=== PATIENT | female | born 1965 | race Caucasian/White ===

== ENCOUNTER → 2024-02-10 11:35 | Outpatient (CLI) | payer OTHER, MEDICAID, SELFPAY ==
--- NOTE | 2024-02-10 11:38 | DI.RAD.S_ITS ---
PROCEDURE: XR CHEST 2V INDICATIONS: unexpected weight loss TECHNIQUE: 2 views of the chest were acquired. COMPARISON: None. FINDINGS: Surgical changes and devices: Right upper quadrant clips consistent with cholecystectomy. Lungs and pleura: Lungs are clear. No pleural effusions or pneumothorax. Mediastinum: Mediastinal contours are normal. Heart size is normal. Bones and chest wall: No suspicious bony abnormalities. Soft tissues appear unremarkable. IMPRESSION: No acute cardiopulmonary disease is seen. Dictated by: Bob Singleton M.D. on 02/10/2024 at 16:27 Approved by: Bob Singleton M.D. on 02/10/2024 at 16:28
[2024-02-13 11:36] LABS: Fecal Immunochemical Test Negative (Negative)
== END ==
PROVIDERS: PCP Family Medicine; Referring Provider Family Medicine; Visit Provider Family Medicine
DX: R63.4 Abnormal weight loss (principal); Z12.11 Encounter for screening for malignant neoplasm of colon; Z83.49 Family history of other endocrine, nutritional and metabolic diseases; R53.83 Other fatigue; G47.00 Insomnia, unspecified; R73.09 Other abnormal glucose
CPT/HCPCS: 71046; 82274

== ENCOUNTER 2024-06-30 13:26 | Emergency (ER) | payer OTHER, SELFPAY ==
[2024-06-30 14:00] VITALS: BP 124/57; PULSE 88; RESP 18; TEMP 36.6; O2SAT 97; BMI 18.2
--- NOTE | 2024-06-30 14:03 | DI.RAD.S_ITS ---
PROCEDURE: XR CHEST 2V INDICATIONS: cough TECHNIQUE: 2 views of the chest were acquired. COMPARISON: [facility], CR, XR CHEST 2V, 02/10/2024, 11:47. FINDINGS: Surgical changes and devices: None. Lungs and pleura: Possible mild lingular opacity. No dense consolidation elsewhere. Mediastinum: Normal heart size, unchanged Bones and chest wall: Unremarkable IMPRESSION: There is a possible mild lingular opacity without dense consolidation elsewhere. No pleural effusions. Consider future imaging surveillance to assess for resolution. Dictated by: Primo Yousif M.D. on 06/30/2024 at 14:27 Approved by: Primo Yousif M.D. on 06/30/2024 at 14:28
[2024-06-30 17:09] VITALS: BP 103/59; PULSE 80; RESP 17; TEMP 36.8; O2SAT 98
--- NOTE | 2024-06-30 18:11 | ED.GENADULT ---
HPI - General Adult General Chief complaint: Upper Respiratory Symptoms Stated complaint: thinks has bronchitis or pneumonia Time Seen by Provider: 06/30/24 17:54 Source: patient Mode of arrival: Ambulatory History of Present Illness HPI narrative: Patient was a 59-year-old female who is here for evaluation of a productive cough, shortness of breath. No fevers. No chest pain. She does have history of asthma. She has been using her inhalers without improvement. No recent travel. No recent antibiotics. Related Data Previous Rx's Medication Instructions Recorded montelukast 10 mg tablet 10 mg PO DAILY #90 tabs 10/24/23 conjugated estrogens 0.625 mg/gram 0.625 mg vaginal DAILY #30 grams 12/13/23 vaginal cream (Premarin) budesonide-formoterol HFA 160 2 puff inhalation BID #10.2 grams 03/09/24 mcg-4.5 mcg/actuation aerosol inhaler doxycycline monohydrate 100 mg 100 mg PO BID 7 days #14 tabs 06/30/24 tablet fluconazole 100 mg tablet 100 mg PO DAILY #2 tabs 06/30/24 (Diflucan) Allergies Allergy/AdvReac Type Severity Reaction Status Date / Time azithromycin AdvReac Mild Verified 06/30/24 14:00 Review of Systems Review of Systems Narrative: See HPI Patient History Medical History Unintended weight loss Poor vision Hearing loss Painful menstrual periods Ovarian cyst (~1980) Genital warts (~1987) Endometriosis (~1994) Genitourinary syndrome of menopause Surgical History (Updated 11/14/23 @ 20:35 by Aleah Gutierrez) Anesthesia History of partial hysterectomy (~2006) History of section (~07/12/98) History of cholecystectomy (~2005) Family History (Updated 11/14/23 @ 20:39 by Aleah Gutierrez) Father History of heart disease Hyperlipidemia History of quadruple bypass Mother Breast cancer Hyperthyroidism Sister Mental health problem Sciatica Grandfather Diabetes mellitus History of heart disease Grandmother Hypertension Grandfather Alzheimer's disease Grandmother Cancer Diabetes mellitus History of heart disease Social History Smoking Status: Never smoker Smoking Status: Never smoker Exam Initial Vital Signs Initial Vital Signs: Vital Signs Temperature 98 F 06/30/24 14:00 Pulse Rate 88 06/30/24 14:00 Respiratory Rate 18 06/30/24 14:00 Blood Pressure 124/57 L 06/30/24 14:00 Pulse Oximetry 97 06/30/24 14:00 Oxygen Delivery Method Room Air 06/30/24 14:00 Const General: cooperative, comfortable and No ill appearing HENMT Head: normal to inspection and normocephalic Resp Effort & Inspection: normal respiratory effort, cough and tachypneic Auscultation: rhonchi and no wheezes Cardio Rate: regular rate Skin General: no rashes or lesions noted Neuro General: patient alert, patient awake and moves all extremities Extrem General: capillary refill normal Course Orders Ordered: Discontinued Medications Doxycycline Hyclate (Doxycycline Hyclate 100 Mg Tablet) 100 mg PO NOW ONE Stop: 06/30/24 18:13 Last Admin: 06/30/24 18:26 Dose: 100 mg Documented By: DESIREE Vital Signs Vital signs: Vital Signs - 8 hr 06/30/24 17:09 06/30/24 18:37 Temperature 98.2 F Pulse Rate 80 Respiratory Rate 17 20 Blood Pressure 103/59 L Pulse Oximetry 98 Medical Decision Making Imaging Data Chest x-ray: Radiologist's Impression: PROCEDURE: XR CHEST 2V INDICATIONS: cough TECHNIQUE: 2 views of the chest were acquired. COMPARISON: Located Within [facility], , XR CHEST 2V, 02/10/2024, 11:47. FINDINGS: Surgical changes and devices: None. Lungs and pleura: Possible mild lingular opacity. No dense consolidation elsewhere. Mediastinum: Normal heart size, unchanged Bones and chest wall: Unremarkable IMPRESSION: There is a possible mild lingular opacity without dense consolidation elsewhere. No pleural effusions. Consider future imaging surveillance to assess for resolution. [facility] Narrative Medical decision making narrative: Patient was had a productive cough. History of asthma. No wheezing. Does have rhonchi. Chest x-ray concerning for lingular consolidation. Because of this will treat her with antibiotics for pneumonia. First dose given here in the emergency department. Patient was not hypoxic. Not septic. Outpatient antibiotics appropriate. She was given return precautions and follow-up instructions. She expressed understanding and agreement with plan. Discharge Plan Departure Patient Disposition: Home Clinical Impression: Pneumonia Instructions: DI for Pneumonia -- Adult Activity Restrictions/Additional Instructions: Take the antibiotics as directed. Take the 1st dose of the fluconazole/Diflucan approximately intermediate through your course of antibiotics. The 2nd dose will be when you have completed the course of antibiotics. Contact your primary doctor for follow-up. Return to the emergency department for new symptoms. Prescriptions: New doxycycline monohydrate 100 mg tablet 100 mg PO BID 7 Days Qty: 14 0RF fluconazole [Diflucan] 100 mg tablet 100 mg PO DAILY Qty: 2 0RF No Action Premarin 0.625 mg/gram cream 0.625 mg vaginal DAILY Qty: 30 0RF Rx Instructions: Insert 2 g of cream intravaginally daily for 2 weeks. Then taper to maintenance dose to 1 g three times a week. budesonide-formoterol 160-4.5 mcg/actuation HFA aerosol inhaler 2 puff inhalation BID Qty: 10.2 3RF montelukast 10 mg tablet 10 mg PO DAILY Qty: 90 3RF Referrals: Nilam Gómez DO [Primary Care Provider] - Stand Alone Forms: Patient Portal/API/Survey
[2024-06-30] MEDS: DOXYCYCLINE HYCLATE 100 MG TABLET PO (18:26)
--- NOTE | 2024-06-30 18:36 | PC.NURSE ---
Pt reports coughing up yellow and green phelgm.
[2024-06-30 18:37] VITALS: RESP 20
== END 2024-06-30 18:37 | disposition home or self-care (01) ==
PROVIDERS: Emergency Provider Emergency Medicine; PCP Family Medicine
DX: J18.9 Pneumonia, unspecified organism (principal)
CPT/HCPCS: 71046; 99283

== ENCOUNTER → 2024-12-17 09:41 | Outpatient (CLI) | payer OTHER, SELFPAY ==
--- NOTE | 2024-12-17 09:43 | DI.US.S_ITS ---
PROCEDURE: US ABDOMEN COMPLETE INDICATIONS: chronic abdominal upset/nausea, hx gallbladder removal TECHNIQUE: Real-time scanning was performed of the abdominal and retroperitoneal organs, with image documentation. COMPARISON: None. FINDINGS: Liver: Liver is normal in size and homogeneous in echotexture. Gallbladder: Absent. Biliary ducts: Intrahepatic bile ducts are non-dilated. Extrahepatic bile duct caliber measures 5 mm. Normal is 6-7 mm or less in diameter, or 10 mm or less post-cholecystectomy. Pancreas: Visualized portions of the pancreas are sonographically normal. Spleen: Spleen is normal in size and homogeneous in echotexture. Measures 7 cm. Kidneys: Kidneys are normal in size and echotexture. Right kidney measures 9.5 cm long; left kidney measures 9.5 cm long. No hydronephrosis or nephrolithiasis. No solid masses. Aorta: Visualized aorta is normal in caliber at less than 3 cm. Iliacs: Proximal common iliac arteries are normal in caliber at less than 2.5 cm. IVC: Intrahepatic inferior vena cava is patent. Miscellaneous: No free abdominal fluid. IMPRESSION: 1. No acute abnormality identified. Post cholecystectomy. 2. No hydronephrosis. Dictated by: Souleymane Smith M.D. on 12/17/2024 at 13:50 Approved by: Souleymane Smith M.D. on 12/17/2024 at 13:51
--- NOTE | 2024-12-17 09:43 | DI.US.S_ITS ---
PROCEDURE: US PELVIC COMPLETE INDICATIONS: chronic abdominal upset/nausea, hx gallbladder removal TECHNIQUE: Real-time scanning was performed of the pelvic organs, with image documentation. Additional endovaginal scanning was necessary due to incomplete visualization of the adnexal and endometrial structures by transabdominal scanning. COMPARISON: None. FINDINGS: Uterus: Absent. Ovaries: Ovaries are not seen transabdominally or transvaginally. Other: No pathologic free abdominal or pelvic fluid. IMPRESSION: Post hysterectomy. Ovaries are not seen. No free fluid. We strive to produce accurate, complete, and clear reports of imaging services. To assist us in improving patient care, this report was composed using standard report templates and voice recognition software. Therefore, it may contain abnormal punctuation, insertions and/or omissions. Occasional wrong-word or sound-alike substitutions may occur. Though we review the report and make efforts to correct it, we do recommend that the report be read carefully in proper context to recognize any text inaccuracies. Dictated by: Souleymane Smith M.D. on 12/17/2024 at 13:52 Approved by: Souleymane Smith M.D. on 12/17/2024 at 13:55
== END ==
LOC: US 09:42
PROVIDERS: PCP Family Medicine; Referring Provider Family Medicine; Visit Provider Family Medicine
DX: N95.8 Other specified menopausal and perimenopausal disorders (principal); R53.83 Other fatigue; R63.4 Abnormal weight loss; R10.2 Pelvic and perineal pain; G89.29 Other chronic pain; Z90.49 Acquired absence of other specified parts of digestive tract; Z90.711 Acquired absence of uterus with remaining cervical stump
CPT/HCPCS: 76700; 76830; 76856